=== PATIENT | female | born 1955 | race Caucasian/White ===

== ENCOUNTER → 2017-01-09 | Outpatient (CLI) | payer BC ==
[2017-01-09 14:36] LABS: HEMOGLOBIN 13.2 gm/dl (12.3-15.3); RED BLOOD COUNT 4.24 M/UL (4.00-5.10); WHITE BLOOD COUNT 6.8 K/UL (4.5-11.0)
[2017-01-09 14:56] LABS: BUN/CREATININE RATIO 19 (0-10)
== END ==
LOC: LAB 13:28
PROVIDERS: Neurological Surgery
DX: I67.1 Cerebral aneurysm, nonruptured (principal)
CPT/HCPCS: 36415; 80048; 83036; 85027; 85610; 85730

== ENCOUNTER → 2017-01-20 | Outpatient (CLI) | payer BC ==
[2017-01-20 15:16] LABS: HEMOGLOBIN 13.9 gm/dl (12.3-15.3); RED BLOOD COUNT 4.38 M/UL (4.00-5.10); WHITE BLOOD COUNT 10.1 K/UL (4.5-11.0)
[2017-01-20 15:30] LABS: BUN/CREATININE RATIO 13 (0-10)
== END ==
LOC: LAB 14:34
PROVIDERS: Nurse Practitioner Family
DX: R07.81 Pleurodynia (principal); M81.0 Age-related osteoporosis without current pathological fracture; M48.54XA Collapsed vertebra, not elsewhere classified, thoracic region, initial encounter for fracture
CPT/HCPCS: 36415; 71020; 80053; 85025; 85379

== ENCOUNTER 2020-10-06 19:15 | Emergency (ER) | payer MEDICARE, OTHER ==
[~2020-10-06 19:15] MED LIST: BENTYL 10MG CAP10 MG PO; CARAFATE1 GM PO; PEPCID40 MG PO; PROTONIX40 MG PO; Voltaren Gel 1 % TOP
[2020-10-06 20:33] LABS: HEMOGLOBIN 14.6 gm/dl (12.3-15.3); RED BLOOD COUNT 4.94 M/UL (4.00-5.10)
[2020-10-06 21:58] LABS: BUN/CREATININE RATIO 19 (0-10)
[2020-10-06] MEDS ORDERED: MEDROL DOSEPAK 24 MG PO (22:25)
[2020-10-06] MEDS ORDERED: ROBAXIN-750750 MG PO (22:27)
== END 2020-10-06 22:58 | disposition home or self-care (01) ==
LOC: ER1 19:15
PROVIDERS: Nurse Practitioner
DX: M54.6 Pain in thoracic spine (principal); G89.29 Other chronic pain; R07.89 Other chest pain; M47.816 Spondylosis without myelopathy or radiculopathy, lumbar region; E03.9 Hypothyroidism, unspecified; M81.0 Age-related osteoporosis without current pathological fracture; F17.210 Nicotine dependence, cigarettes, uncomplicated; Z88.8 Allergy status to other drugs, medicaments and biological substances; Z79.899 Other long term (current) drug therapy; Z86.79 Personal history of other diseases of the circulatory system; Z86.73 Personal history of transient ischemic attack (TIA), and cerebral infarction without residual deficits
CPT/HCPCS: 71045; 72128; 72131; 80053; 81001; 82550; 82553; 83735; 84484; 85025; 93005; 94664; 96374; 96375; 99284; J1100; J1885

== ENCOUNTER 2020-11-27 13:51 | Emergency (ER) | payer MEDICARE, OTHER ==
[~2020-11-27 13:51] MED LIST changes: +MEDROL DOSEPAK 24 MG PO; +ROBAXIN-750750 MG PO
[2020-11-27 15:05] LABS: HEMOGLOBIN 15.9 gm/dl (12.3-15.3); RED BLOOD COUNT 5.33 M/UL (4.00-5.10); WHITE BLOOD COUNT 7.8 K/UL (4.5-11.0)
[2020-11-27] MEDS ORDERED: BENTYL 20MG TAB20 MG PO (17:33)
[2020-11-27] MEDS ORDERED: IMODIUM CAP 2 MG2 MG PO (17:33)
[2020-11-27] MEDS ORDERED: ZOFRAN4 MG PO (17:33)
== END 2020-11-27 18:10 | disposition home or self-care (01) ==
LOC: ER1 13:51
PROVIDERS: Internal Medicine
DX: K52.9 Noninfective gastroenteritis and colitis, unspecified (principal); J44.9 Chronic obstructive pulmonary disease, unspecified; M19.90 Unspecified osteoarthritis, unspecified site; F17.210 Nicotine dependence, cigarettes, uncomplicated; Z88.6 Allergy status to analgesic agent; Z96.652 Presence of left artificial knee joint
CPT/HCPCS: 36415; 80053; 82270; 83690; 85025; 85610; 85730; 96374; 99284; J2405; J7120; Q9967

== ENCOUNTER → 2020-11-30 | Outpatient (CLI) | payer MEDICARE, OTHER ==
[~2020-11-30] MED LIST changes: +AUGMENTIN 875-1 EACH PO; +BENTYL 20MG TAB20 MG PO; +HYDROXYZINE HCL50 MG PO; +IMODIUM CAP 2 MG2 MG PO; +KLONOPIN TAB 00.5 MG PO; +LEVOTHYROXINE150 MCG PO; +PRAZOSIN HCL2 MG PO; +TRAZODONE HCL100 MG PO; +VENTOLIN HFA 66.7 GM INH; +ZOFRAN4 MG PO
== END ==
LOC: HEART 5 14:46
DX: Z53.9 Procedure and treatment not carried out, unspecified reason (principal); J44.9 Chronic obstructive pulmonary disease, unspecified

== ENCOUNTER 2021-04-06 15:03 | Observation (INO) | payer MEDICARE, OTHER ==
[~2021-04-06] VITALS: Ht 162.6 cm; Wt 68.0 kg
[~2021-04-06 15:03] MED LIST changes: -AUGMENTIN 875-1 EACH PO; -HYDROXYZINE HCL50 MG PO; -KLONOPIN TAB 00.5 MG PO; -LEVOTHYROXINE150 MCG PO; -PRAZOSIN HCL2 MG PO; -TRAZODONE HCL100 MG PO; -VENTOLIN HFA 66.7 GM INH
[2021-04-06 15:29] LABS: HEMOGLOBIN 12.8 gm/dl (12.3-15.3); RED BLOOD COUNT 4.27 M/UL (4.00-5.10); WHITE BLOOD COUNT 8.7 K/UL (4.5-11.0)
[2021-04-06 16:10] LABS: BUN/CREATININE RATIO 13 (0-10)
[2021-04-07 03:46] LABS: HEMOGLOBIN 11.5 gm/dl (12.3-15.3); WHITE BLOOD COUNT 7.1 K/UL (4.5-11.0)
[2021-04-07 03:53] LABS: RED BLOOD COUNT 3.84 M/UL (4.00-5.10)
[2021-04-07 04:10] LABS: BUN/CREATININE RATIO 12 (0-10)
[2021-04-07] MEDS ORDERED: TRAZODONE HCL100 MG PO (14:39)
[2021-04-07] MEDS ORDERED: HYDROXYZINE HCL50 MG PO (14:39)
[2021-04-07] MEDS ORDERED: PRAZOSIN HCL2 MG PO (14:39)
[2021-04-07] MEDS ORDERED: KLONOPIN TAB 00.5 MG PO (14:39)
[2021-04-07] MEDS ORDERED: VENTOLIN HFA 66.7 GM INH (14:40)
[2021-04-07] MEDS ORDERED: LEVOTHYROXINE150 MCG PO (14:40)
[2021-04-08 04:05] LABS: HEMOGLOBIN 11.5 gm/dl (12.3-15.3); RED BLOOD COUNT 3.85 M/UL (4.00-5.10); WHITE BLOOD COUNT 6.3 K/UL (4.5-11.0)
[2021-04-08 04:30] LABS: BUN/CREATININE RATIO 12 (0-10)
[2021-04-09 02:49] LABS: HEMOGLOBIN 11.1 gm/dl (12.3-15.3); RED BLOOD COUNT 3.71 M/UL (4.00-5.10)
[2021-04-09 02:53] LABS: WHITE BLOOD COUNT 9.9 K/UL (4.5-11.0)
[2021-04-09] MEDS ORDERED: AUGMENTIN 875-1 EACH PO (11:07)
== END 2021-04-09 16:27 | disposition home or self-care (01) ==
LOC: ER1 15:03 → CDU 17:45 → M/S 20:18
PROVIDERS: Physician Assistant; Preventive Medicine Occupational Medicine; ADMIT Internal Medicine
DX: L03.116 Cellulitis of left lower limb (principal); L03.115 Cellulitis of right lower limb; R60.0 Localized edema; R19.7 Diarrhea, unspecified; Z20.822 Contact with and (suspected) exposure to COVID-19; I10 Essential (primary) hypertension; E03.9 Hypothyroidism, unspecified; F41.9 Anxiety disorder, unspecified; G62.9 Polyneuropathy, unspecified; E66.01 Morbid (severe) obesity due to excess calories; Z96.652 Presence of left artificial knee joint; Z88.6 Allergy status to analgesic agent; F17.210 Nicotine dependence, cigarettes, uncomplicated; J44.1 Chronic obstructive pulmonary disease with (acute) exacerbation; J96.11 Chronic respiratory failure with hypoxia; M19.90 Unspecified osteoarthritis, unspecified site; Z66 Do not resuscitate; G47.00 Insomnia, unspecified; R53.81 Other malaise; Z74.01 Bed confinement status; R00.0 Tachycardia, unspecified
CPT/HCPCS: 0240U; 36415; 36600; 51701; 70450; 71045; 73721; 80048; 80053; 80202; 80307; 81001; 82140; 82550; 82553; 82803; 83605; 83690; 83874; 83880; 84439; 84443; 84484; 84550; 85025; 85027; 85652; 86140; 87040; 87086; 93005; 93970; 94640; 94664; 94760; 96372; 96374; 96375; 96376; 97161; 97166; 97530-GP-CQ; 99285; G0378; G0480; J0696; J1650; J2543; J2920; J3370; J7030; J7070; Q0177

== ENCOUNTER 2021-06-23 23:45 | Emergency (ER) | payer MEDICARE, OTHER ==
[~2021-06-23 23:45] MED LIST changes: +AUGMENTIN 875-1 EACH PO; +HYDROXYZINE HCL50 MG PO; +KLONOPIN TAB 00.5 MG PO; +LEVOTHYROXINE150 MCG PO; +PRAZOSIN HCL2 MG PO; +TRAZODONE HCL100 MG PO; +VENTOLIN HFA 66.7 GM INH
[2021-06-24 01:23] LABS: HEMOGLOBIN 13.1 gm/dl (12.3-15.3); RED BLOOD COUNT 4.59 M/UL (4.00-5.10); WHITE BLOOD COUNT 7.3 K/UL (4.5-11.0)
[2021-06-24 02:01] LABS: BUN/CREATININE RATIO 11 (0-10)
[2021-06-24] MEDS ORDERED: PREDNISONE 20 M20 MG GT (03:08)
[2021-06-24] MEDS ORDERED: [UNRECOGNIZED DRUG - REMARK] (03:11)
== END 2021-06-24 03:37 | disposition home or self-care (01) ==
LOC: ER1 23:45
PROVIDERS: Family Medicine
DX: J44.9 Chronic obstructive pulmonary disease, unspecified (principal); E11.9 Type 2 diabetes mellitus without complications; Z86.73 Personal history of transient ischemic attack (TIA), and cerebral infarction without residual deficits; F17.210 Nicotine dependence, cigarettes, uncomplicated
CPT/HCPCS: 36600; 71045; 80053; 81001; 82550; 82553; 82803; 83874; 83880; 84484; 85025; 85379; 93005; 94664; 96374; 99285; J2930

== ENCOUNTER 2021-08-07 18:50 | Emergency (ER) | payer MEDICARE, OTHER ==
[~2021-08-07 18:50] MED LIST changes: +PREDNISONE 20 M20 MG GT; +[UNRECOGNIZED DRUG - REMARK]
[2021-08-07 21:18] LABS: HEMOGLOBIN 13.7 gm/dl (12.3-15.3); RED BLOOD COUNT 4.58 M/UL (4.00-5.10); WHITE BLOOD COUNT 10.1 K/UL (4.5-11.0)
[2021-08-07 21:48] LABS: BUN/CREATININE RATIO 20 (0-10)
[2021-08-08] MEDS ORDERED: CEPHALEXIN500 MG PO (01:43)
[2021-08-08] MEDS ORDERED: K-TAB ER10 MEQ PO (01:43)
[2021-08-08] MEDS ORDERED: LASIX20 MG PO (01:43)
[2021-08-08] MEDS ORDERED: COLACE100 MG PO (01:43)
[2021-08-08] MEDS ORDERED: BACTRIM DS TAB1 EACH PO (01:43)
[2021-08-08] MEDS ORDERED: PROVENTIL HFA6.7 GM INH (01:50)
== END 2021-08-08 03:00 | disposition home or self-care (01) ==
LOC: ER1 18:50
PROVIDERS: Physician Assistant
DX: J44.1 Chronic obstructive pulmonary disease with (acute) exacerbation (principal); J40 Bronchitis, not specified as acute or chronic; I10 Essential (primary) hypertension; L03.116 Cellulitis of left lower limb; L03.115 Cellulitis of right lower limb; E03.9 Hypothyroidism, unspecified; F17.200 Nicotine dependence, unspecified, uncomplicated; N39.0 Urinary tract infection, site not specified; K59.00 Constipation, unspecified; R07.89 Other chest pain; Z88.1 Allergy status to other antibiotic agents
CPT/HCPCS: 36600; 51701; 74022; 80053; 81001; 82550; 82553; 82803; 83874; 83880; 84439; 84443; 84484; 85025; 85379; 93005; 94664; 96374; 99285; J1940; Q9967

== ENCOUNTER 2021-08-07 19:54 | Emergency (ER) | payer MEDICARE, OTHER ==
[2021-08-08] MEDS ORDERED: COLACE100 MG PO (01:43)
[2021-08-08] MEDS ORDERED: K-TAB ER10 MEQ PO (01:43)
[2021-08-08] MEDS ORDERED: LASIX20 MG PO (01:43)
[2021-08-08] MEDS ORDERED: CEPHALEXIN500 MG PO (01:43)
[2021-08-08] MEDS ORDERED: BACTRIM DS TAB1 EACH PO (01:43)
[2021-08-08] MEDS ORDERED: PROVENTIL HFA6.7 GM INH (01:50)
== END 2021-08-07 19:57 | disposition left against medical advice (07) ==
LOC: ER1 19:54
DX: Z53.21 Procedure and treatment not carried out due to patient leaving prior to being seen by health care provider (principal)

== ENCOUNTER 2021-08-30 20:31 | Emergency (ER) | payer MEDICARE, OTHER ==
[~2021-08-30 20:31] MED LIST changes: +BACTRIM DS TAB1 EACH PO; +CEPHALEXIN500 MG PO; +COLACE100 MG PO; +K-TAB ER10 MEQ PO; +LASIX20 MG PO; +PROVENTIL HFA6.7 GM INH
[2021-08-30 22:07] LABS: HEMOGLOBIN 12.6 gm/dl (12.3-15.3); RED BLOOD COUNT 4.29 M/UL (4.00-5.10); WHITE BLOOD COUNT 7.1 K/UL (4.5-11.0)
[2021-08-30 22:25] LABS: BUN/CREATININE RATIO 14 (0-10)
[2021-08-31] MEDS ORDERED: LASIX20 MG PO (03:14)
== END 2021-08-31 03:38 | disposition home or self-care (01) ==
LOC: ER1 20:31
PROVIDERS: Family Medicine
DX: R07.89 Other chest pain (principal); M79.605 Pain in left leg; M79.604 Pain in right leg; Z20.822 Contact with and (suspected) exposure to COVID-19; J96.11 Chronic respiratory failure with hypoxia; F17.200 Nicotine dependence, unspecified, uncomplicated; Z74.01 Bed confinement status; G89.29 Other chronic pain
CPT/HCPCS: 36600; 70450; 71045; 80053; 82550; 82553; 82803; 83874; 83880; 84439; 84443; 84484; 85025; 86140; 93005; 99285; U0002

== ENCOUNTER 2022-02-27 21:44 | Observation (INO) | payer MEDICARE, OTHER ==
[~2022-02-27] VITALS: Ht 162.6 cm; Wt 86.2 kg
[~2022-02-27 21:44] MED LIST changes: +PROAIR HFA8.5 GM INH; -TRAZODONE HCL100 MG PO; +TRAZODONE HCL300 MG PO; -VENTOLIN HFA 66.7 GM INH
[2022-02-27 21:59] LABS: HEMOGLOBIN 13.9 gm/dl (12.3-15.3); RED BLOOD COUNT 4.57 M/UL (4.00-5.10); WHITE BLOOD COUNT 11.8 K/UL (4.5-11.0)
[2022-02-27 22:23] LABS: BUN/CREATININE RATIO 31 (0-10)
[2022-02-28 04:56] LABS: HEMOGLOBIN 12.6 gm/dl (12.3-15.3); RED BLOOD COUNT 4.22 M/UL (4.00-5.10); WHITE BLOOD COUNT 10.8 K/UL (4.5-11.0)
[2022-02-28 05:24] LABS: BUN/CREATININE RATIO 33 (0-10)
[2022-02-28] MEDS ORDERED: DEXAMETHASONE6 MG PO (09:51)
[2022-02-28] MEDS ORDERED: SPIRIVA HANDIH18 MCG INH (09:52)
[2022-02-28] MEDS ORDERED: HYDROCODON-ACE1 EAC4 PO (09:52)
[2022-02-28] MEDS ORDERED: ALBUTEROL1.25 MG/3 INH (09:52)
[2022-02-28] MEDS ORDERED: GABAPENTIN800 MG PO (09:53)
[2022-02-28] MEDS ORDERED: VIIBRYD20 MG PO (09:54)
[2022-02-28] MEDS ORDERED: ASPIRIN EC81 MG PO (09:54)
[2022-02-28] MEDS ORDERED: VITAMIN D3125 MCG PO (09:54)
[2022-03-01 04:03] LABS: HEMOGLOBIN 11.4 gm/dl (12.3-15.3); RED BLOOD COUNT 3.84 M/UL (4.00-5.10); WHITE BLOOD COUNT 11.9 K/UL (4.5-11.0)
[2022-03-01 04:08] LABS: BUN/CREATININE RATIO 40 (0-10)
[2022-03-02 03:18] LABS: HEMOGLOBIN 11.1 gm/dl (12.3-15.3); RED BLOOD COUNT 3.74 M/UL (4.00-5.10); WHITE BLOOD COUNT 10.2 K/UL (4.5-11.0)
[2022-03-02 04:40] LABS: BUN/CREATININE RATIO 31 (0-10)
[2022-03-03 03:26] LABS: RED BLOOD COUNT 3.66 M/UL (4.00-5.10); WHITE BLOOD COUNT 9.9 K/UL (4.5-11.0)
[2022-03-03 03:44] LABS: BUN/CREATININE RATIO 27 (0-10)
[2022-03-03] MEDS ORDERED: BUDESONIDE0.5 MG/2 M NEB (15:28)
[2022-03-03] MEDS ORDERED: DOCUSATE SODIU100 MG PO (15:28)
[2022-03-03] MEDS ORDERED: [UNRECOGNIZED DRUG - SUPPLY] TP (15:28)
[2022-03-03] MEDS ORDERED: RANEXA500 MG PO (15:28)
[2022-03-03] MEDS ORDERED: ISOSORBIDE MONO30 MG PO (15:28)
[2022-03-03] MEDS ORDERED: IPRAT-ALBUT 0.5-3 ML NEB (15:28)
[2022-03-03] MEDS ORDERED: ATORVASTATIN CA20 MG PO (15:28)
== END 2022-03-03 20:42 | disposition home or self-care (01) ==
LOC: ER1 21:44 → M/S 02-28 01:02 → CDU 02-28 01:02 → M/S 02-28 06:16
PROVIDERS: Internal Medicine; ADMIT Internal Medicine
DX: I20.9 Angina pectoris, unspecified (principal); R68.84 Jaw pain; I10 Essential (primary) hypertension; E11.9 Type 2 diabetes mellitus without complications; J44.9 Chronic obstructive pulmonary disease, unspecified; G62.9 Polyneuropathy, unspecified; M00.9 Pyogenic arthritis, unspecified; E03.9 Hypothyroidism, unspecified; E66.01 Morbid (severe) obesity due to excess calories; I69.354 Hemiplegia and hemiparesis following cerebral infarction affecting left non-dominant side; R06.02 Shortness of breath; R11.0 Nausea; Z99.81 Dependence on supplemental oxygen; Z74.01 Bed confinement status; Z72.0 Tobacco use; Z82.49 Family history of ischemic heart disease and other diseases of the circulatory system; Z88.6 Allergy status to analgesic agent
CPT/HCPCS: ECHO; 36415; 71045; 80053; 80061; 82550; 82553; 82962; 83036; 83735; 84439; 84443; 84484; 85025; 85027; 85379; 85610; 85730; 93005; 93306; 94640; 94664; 94760; 96372; 96374; 99285; G0378; J1644; J2270

== ENCOUNTER 2022-04-30 19:24 | Emergency (ER) | payer MEDICARE, OTHER ==
[~2022-04-30 19:24] MED LIST changes: +ALBUTEROL1.25 MG/3 INH; +ASPIRIN EC81 MG PO; +ATORVASTATIN CA20 MG PO; +BUDESONIDE0.5 MG/2 M NEB; +DEXAMETHASONE6 MG PO; +DOCUSATE SODIU100 MG PO; +GABAPENTIN800 MG PO; +HYDROCODON-ACE1 EAC4 PO; +IPRAT-ALBUT 0.5-3 ML NEB; +ISOSORBIDE MONO30 MG PO; +RANEXA500 MG PO; +SPIRIVA HANDIH18 MCG INH; +VIIBRYD20 MG PO; +VITAMIN D3125 MCG PO; +[UNRECOGNIZED DRUG - SUPPLY] TP
[2022-04-30 20:38] LABS: HEMOGLOBIN 12.7 gm/dl (12.3-15.3); RED BLOOD COUNT 4.2 M/UL (4.00-5.10); WHITE BLOOD COUNT 12.9 K/UL (4.5-11.0)
[2022-04-30 20:48] LABS: BUN/CREATININE RATIO 29 (0-10)
[2022-04-30] MEDS ORDERED: VALACYCLOVIR1000 MG PO (23:09)
== END 2022-04-30 23:50 | disposition home or self-care (01) ==
LOC: ER1 19:24
PROVIDERS: Family Medicine
DX: J96.11 Chronic respiratory failure with hypoxia (principal); E11.40 Type 2 diabetes mellitus with diabetic neuropathy, unspecified; R21 Rash and other nonspecific skin eruption; Z20.822 Contact with and (suspected) exposure to COVID-19; Z99.81 Dependence on supplemental oxygen; G89.29 Other chronic pain; J44.9 Chronic obstructive pulmonary disease, unspecified; I10 Essential (primary) hypertension
CPT/HCPCS: 36600; 51702; 71045; 80053; 80307; 81001; 82550; 82553; 82803; 83605; 83690; 83735; 83880; 84439; 84443; 84484; 85025; 85610; 93005; 99285; G0480; U0002

== ENCOUNTER 2022-05-28 00:12 | Emergency (ER) | payer MEDICARE, OTHER ==
[~2022-05-28 00:12] MED LIST changes: +OMNICEF 300 MG300 MG PO; +PREDNISONE 10 M10 MG PO; +VALACYCLOVIR1000 MG PO
[2022-05-28 00:56] LABS: HEMOGLOBIN 11.8 gm/dl (12.3-15.3); RED BLOOD COUNT 3.73 M/UL (4.00-5.10); WHITE BLOOD COUNT 14.5 K/UL (4.5-11.0)
[2022-05-28 01:20] LABS: BUN/CREATININE RATIO 22 (0-10)
[2022-05-28] MEDS ORDERED: PREDNISONE20 MG PO (02:39)
[2022-05-28] MEDS ORDERED: ALBUTEROL1.25 MG/3 INH (02:39)
== END 2022-05-28 04:03 | disposition home or self-care (01) ==
LOC: ER1 00:12
PROVIDERS: Emergency Medicine
DX: J44.1 Chronic obstructive pulmonary disease with (acute) exacerbation (principal); I11.9 Hypertensive heart disease without heart failure; E11.9 Type 2 diabetes mellitus without complications; I48.91 Unspecified atrial fibrillation
CPT/HCPCS: 71045; 80048; 84484; 85025; 86140; 93005; 94664; 96374; 99285; J2930